=== PATIENT | male | born 1950 | race Caucasian/White ===

== ENCOUNTER 2017-12-03 10:46 | Outpatient (CLI) | payer OTHER | END 2017-12-03 14:21 | disposition home or self-care (01) | LOC: MRI 10:46 | DX: M00.861 Arthritis due to other bacteria, right knee (principal); M00.862 Arthritis due to other bacteria, left knee; M23.011 Cystic meniscus, anterior horn of medial meniscus, right knee; M23.012 Cystic meniscus, anterior horn of medial meniscus, left knee | CPT/HCPCS: 73721 ==

== ENCOUNTER 2019-03-31 11:52 | Outpatient (CLI) | payer OTHER | END 2019-03-31 17:00 | disposition home or self-care (01) | LOC: MRI 11:52 | DX: D33.1 Benign neoplasm of brain, infratentorial (principal); R42 Dizziness and giddiness | CPT/HCPCS: 70552; A9575 ==